=== PATIENT | male | born 2000 | race African-American/Black ===

== ENCOUNTER 2019-07-28 21:24 | Emergency (ER) | payer OTHER ==
[~2019-07-28] VITALS: Ht 177.8 cm; Wt 84.1 kg
[2019-07-28 21:24] VITALS: BP 132/67
[2019-07-28] MEDS ORDERED: IBUP-1022 PO (22:03)
[2019-07-28] MEDS ORDERED: CYCL10TA PO (22:03)
== END 2019-07-28 22:44 | disposition home or self-care (01) ==
LOC: M ED 21:24
DX: M54.5 Low back pain (principal); Z72.0 Tobacco use

== ENCOUNTER 2020-01-13 09:15 | Inpatient (IN) | payer OTHER ==
[~2020-01-13] VITALS: Ht 177.8 cm; Wt 87.8 kg
[~2020-01-13 09:15] MED LIST: CYCL10TA PO; IBUP-1022 PO
[2020-01-13 09:58] LABS: HEMATOCRIT 48.2 % (42.0-52.0); HEMOGLOBIN 14.5 g/dl (13.5-17.5); MEAN CORPUSCULAR HEMOGLOBIN 22.8 pg (27.0-33.0); MEAN CORPUSCULAR HGB CONC 30.1 g/dl (32.0-36.5); MEAN CORPUSCULAR VOLUME 75.9 fl (80.0-96.0); PLATELET COUNT, AUTOMATED 206 10^3/uL (150-450); RED BLOOD COUNT 6.35 10^6/uL (4.30-6.10); WHITE BLOOD COUNT 5.8 10^3/uL (4.0-10.0)
[2020-01-13 10:36] LABS: AMPHETAMINES LEVEL URINE NEGATIVE (NEGATIVE); BARBITURATES URINE NEGATIVE (NEGATIVE); BENZODIAZEPINES URINE POSITIVE (NEGATIVE); CANNABINOIDS URINE NEGATIVE (NEGATIVE); COCAINE METABOLITE URINE POSITIVE (NEGATIVE); METHADONE URINE NEGATIVE (NEGATIVE); OPIATES URINE NEGATIVE (NEGATIVE); PHENCYCLIDINE URINE NEGATIVE (NEGATIVE)
[2020-01-13 10:41] LABS: ACETAMINOPHEN LEVEL < 2.0 UG/ML (10.0-30.0); ALBUMIN 3.9 GM/DL (3.2-5.2); ALT/SGPT 17 U/L (12-78); BILIRUBIN,DIRECT 0.2 MG/DL (0.0-0.2); BILIRUBIN,TOTAL 0.4 MG/DL (0.2-1.0); BLOOD UREA NITROGEN 10 MG/DL (7-18); CALCIUM LEVEL 8.8 MG/DL (8.5-10.1); CARBON DIOXIDE LEVEL 29 MEQ/L (21-32); CHLORIDE LEVEL 104 MEQ/L (98-107); CREATININE FOR GFR 1.21 MG/DL (0.70-1.30); ETHYL ALCOHOL (ETHANOL) 0.061 % (0.000-0.010); GLOMERULAR FILTRATION RATE > 60.0 (>60); GLUCOSE, FASTING 80 MG/DL (70-100); POTASSIUM SERUM 3.7 MEQ/L (3.5-5.1); SODIUM LEVEL 141 MEQ/L (136-145); THYROID STIMULATING HORMONE 0.469 uIU/ML (0.358-3.740); TOTAL PROTEIN 7.4 GM/DL (6.4-8.2)
[2020-01-13] MEDS ORDERED: MAALOX 30 ML SUSP *UDC PO PRN (18:45)
[2020-01-13] MEDS ORDERED: MOM 30ML SUSPENSION UDC PO PRN (18:45)
[2020-01-13] MEDS ORDERED: traZODone 50 MG TAB PO PRN (18:45)
[2020-01-13] MEDS ORDERED: ACETAMINOPHEN TAB 650MG DOSE (2X325MG) PO PRN (18:45)
[2020-01-13 22:18] VITALS: BP 123/82
--- NOTE | 2020-01-14 04:53 | ECGEPIP ---
[facility] - ED Test Date: 2020-01-13 Pat Name: VALDEZ URIOSTEGUI Department: Room: - Gender: Male Illusionist: JOSH : 2000 Requested By: Humberto Wisdom Order Number: [id number] Reading MD: Kenan Love Measurements Intervals [place] Rate: 71 P: 53 [place]: 188 QRS: 73 QRSD: 96 T: 36 QT: 359 QTc: 391 Interpretive Statements SINUS RHYTHM Comparison tracing not on file Electronically Signed on 01-14-2020 4:53:12 EST by Kenan Love
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
--- NOTE | 2020-01-14 09:31 | MHDSPDOC ---
[facility] Discharge Summary Discharge Summary DATE OF ADMISSION: Jan 13, 2020 at 18:37 DATE OF DISCHARGE: 01/14/20 Please see h/p for clinical dx, clinical course and discussion Vital Signs/I&Os Vital Signs Date Time Temp Pulse Resp B/P (MAP) Pulse Ox O2 Delivery O2 Flow Rate FiO2 01/13/20 22:18 98.6 67 16 123/82 (96) 98 Room Air Laboratory Data Labs 24H Laboratory Tests 2 01/13/20 09:45: Urine Opiates Screen NEGATIVE, Urine Methadone Screen NEGATIVE, Urine Barbiturates Screen NEGATIVE, Urine Phencyclidine Screen NEGATIVE, Urine Amphetamines Screen NEGATIVE, Urine Benzodiazepines Screen POSITIVEH, Urine Cocaine Metabolite Screen POSITIVEH, Urine Cannabinoids Screen NEGATIVE 01/13/20 09:46: Nucleated Red Blood Cells % (auto) 0.0, Anion Gap 8, Glomerular Filtration Rate > 60.0, Calcium Level 8.8, Total Bilirubin 0.4, Direct Bilirubin 0.2, Aspartate Amino Transf (AST/SGOT) 15, Alanine Aminotransferase (ALT/SGPT) 17, Alkaline Phosphatase 87, Total Protein 7.4, Albumin 3.9, Albumin/Globulin Ratio 1.11, Thyroid Stimulating Hormone (TSH) 0.469, Salicylates Level 2.0L, Acetaminophen Level < 2.0L, Ethyl Alcohol Level 0.061H CBC/BMP Laboratory Tests 01/13/20 09:46 Medications No Active Prescriptions or Reported Meds Allergies Coded Allergies: No Known Allergies (Unverified , 07/28/19) ISABELLE GLEZ DO Jan 14, 2020 09:31
--- NOTE | 2020-01-14 10:55 | HPE ---
DATE OF ADMISSION: 01/13/2020 This is a hospitalist generated inpatient mental health history and physical. 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 [facility] [employer]. He takes only p.r.n. analgesic for this. He has no past history otherwise. Denies any significant medical problems. MEDICATIONS: Over the counter nonsteroidals such as naproxen. ALLERGIES: None known. FAMILY HISTORY: Mother has diabetes and hypertension and father hypertension. REVIEW OF SYSTEMS: No chest pain, shortness of breath or dyspnea on exertion. No rectal bleeding, urinary bleeding. PHYSICAL EXAMINATION: Vital signs per flow sheet. Alert, conversant, in no distress. HEENT: Unremarkable. LUNGS: Clear. HEART: Regular rhythm. ABDOMEN: Soft. No masses. Good distal pulses. IMPRESSION: Patient medically stable with chronic low back pain. Treat with analgesics. He has no ongoing medical problems requiring medical care at this time.
== END 2020-01-14 10:35 | disposition home or self-care (01) | DRG 899 ==
LOC: M ED 09:15 → M ED INP 18:37 → M PSY 22:07
PROVIDERS: ADMIT Psychiatry & Neurology Psychiatry; ATTEND Psychiatry & Neurology Addiction Medicine
DX: F10.129 Alcohol abuse with intoxication, unspecified (principal); F14.229 Cocaine dependence with intoxication, unspecified; F60.2 Antisocial personality disorder; M54.5 Low back pain; Z91.82 Personal history of military deployment